=== PATIENT | female | born 1960 | race African-American/Black ===

== ENCOUNTER 2021-12-01 09:53 | Emergency (ER) | payer MEDICAID ==
[~2021-12-01] VITALS: Ht 167.6 cm; Wt 75.4 kg
[~2021-12-01 09:53] MED LIST: APIX5TAB PO; ASPI-886 PO; ASPI325T11 PO; ATOR40TA59 PO; CARV12.511 PO; CLOP75TA PO; CLOP75TA57 PO; DIPH25CA58 PO; DIPH25TA24 PO; DOXY100T PO; DULO60CA7 PO; FURO40TA4 PO; LISI5TAB15 PO; LOSA100T14 PO; METF500T16 PO; SIMV20TA PO; SULF1TAB24 PO; TRAZ-118 PO; VALS320T2 PO
[2021-12-01] MEDS ORDERED: IODIXANOL 320 MG/ML 100 ML VIAL. ONE ×2 (09:56)
[2021-12-01] MEDS ORDERED: HEPARIN for ARTERIAL LINE 1,500 ML ONE (09:56)
[2021-12-01] MEDS ORDERED: LIDOCAINE 1% Multi-Dose 20 ML VIAL. ONE (09:56)
[2021-12-01] MEDS ORDERED: MIDAZOLAM HCL/PF 2 MG/2 ML VIAL. ONE (09:59)
[2021-12-01] MEDS ORDERED: fentaNYL PF VIAL 100 MCG/2 ML VIAL ONE (09:59)
[2021-12-01] MEDS ORDERED: HEPARIN for IV BOLUS 10,000 UNIT/10 ML VIAL. ONE (09:59)
[2021-12-01] MEDS ORDERED: NITROGLYCERIN SUBLINGUAL 0.4 MG BOTTLE OF 25. SL PRN (10:00)
[2021-12-01] MEDS ORDERED: ATROPINE 1 MG/10 ML DISP.SYRINGE. ONE (10:25)
[2021-12-01] MEDS ORDERED: PHENYLEPHRINE in 0.9% NACL PF 1 MG/10 ML SYRINGE. IV ONE (10:25)
[2021-12-01] MEDS ORDERED: NITROGLYCERIN 200 MCG/2 ML SYRINGE FOR CATH/VASC LAB. ONE ×2 (10:34→10:49)
[2021-12-03 14:11] VITALS: BP_SYST 184; BP_SYST 2; BP_DIAS 3
[2021-12-03] MEDS ORDERED: PRAS10TA9 PO (14:38)
[2021-12-03] MEDS ORDERED: APIX5TAB PO (14:39)
== END 2021-12-01 10:07 | disposition admitted as inpatient to this hospital (09) ==
LOC: ER 09:53 → MERGE 09:53 → ER 10:07
DX: R07.89 Other chest pain (principal)
CPT/HCPCS: 36415; 99285-25

== ENCOUNTER → 2022-01-06 | Outpatient (CLI) | payer MEDICAID ==
[2021-12-03 14:11] VITALS: BP 110/55
[~2022-01-06] MED LIST changes: +PRAS10TA9 PO
--- NOTE | 2022-01-07 15:33 | CARD ---
MR#: [id number] Date of Study: 01/06/2022 Ordering Physician: GEORGE GARZA, Referring Physician: GEORGE GARZA Tech: Jordyn Bro [facility] APPROVED REPORT EXAM: Two-dimensional and M-mode echocardiogram with Doppler and color Doppler. Other Information Quality : GoodHR: 61bpm Rhythm : NSR INDICATION Chest Pain 2D DIMENSIONS RVDd2.8 (2.9-3.5cm)Left Atrium(2D)3.3 (1.6-4.0cm) IVSd1.1 (0.7-1.1cm)Aortic Root(2D)3.1 (2.0-3.7cm) LVDd3.8 (3.9-5.9cm)LVOT Diameter2.3 (1.8-2.4cm) PWd1.3 (0.7-1.1cm)LVDs2.5 (2.5-4.0cm) FS (%) 33.8 %SV38.9 ml LVEF(%)63.4 (>50%) Aortic Valve AoV Peak Davidson.125.5cm/sAoV VTI28.9cm AO Peak GR.6.3mmHgLVOT Peak Davidson.106.1cm/s AO Mean GR.3mmHgAVA (VMAX)3.49cm2 Mitral Valve MV E Rcvdjsar47.4cm/sMV DECEL [id number] MV A Jkjnrova98.9cm/sE/A Ratio0.9 Pulmonary Valve PV Peak Voygpqlt995.0cm/s LEFT VENTRICLE The left ventricle is normal size. There is normal left ventricular wall thickness. The left ventricu lar systolic function is normal and the ejection fraction is within normal range. EF 55% There is nor mal LV segmental wall motion. Transmitral Doppler flow pattern is Grade I-abnormal relaxation pattern . No left ventricle thrombus noted on this study. There is no ventricular septal defect visualized. T here is no left ventricular aneurysm. There is no mass noted in the left ventricle. RIGHT VENTRICLE The right ventricle is normal size. There is normal right ventricular wall thickness. The right ventr icular systolic function is normal. ATRIA The left atrium size is normal. The right atrium size is normal. The interatrial septum is intact wit h no evidence for an atrial septal defect or patent foramen ovale as noted on 2-D or Doppler imaging. AORTIC VALVE The aortic valve is normal in structure and function. Doppler and Color Flow revealed no significant aortic regurgitation. There is no significant aortic valvular stenosis. There is no aortic valvular v egetation. MITRAL VALVE The mitral valve is normal in structure and function. There is no evidence of mitral valve prolapse. There is no mitral valve stenosis. Doppler and Color-flow revealed trace mitral regurgitation. TRICUSPID VALVE The tricuspid valve is normal in structure and function. Doppler and Color Flow revealed no tricuspid valve regurgitation noted. There is no tricuspid valve prolapse or vegetation. There is no tricuspid valve stenosis. PULMONIC VALVE The pulmonary valve is normal in structure and function. There is trivial pulmonic regurgitation Ther e is no pulmonic valvular stenosis. GREAT VESSELS The aortic root is normal in size. The ascending aorta is normal in size. The IVC is normal in size a nd collapses >50% with inspiration. PERICARDIAL EFFUSION There is no pleural effusion. There is no evidence of significant pericardial effusion. Critical Notification Critical Value: No <Conclusion> The left ventricular systolic function is normal and the ejection fraction is within normal range. EF 55% There is normal LV segmental wall motion. Signed by : Antoine Mares, Electronically Approved : 01/07/2022 15:32:58
--- NOTE | 2022-01-11 10:07 | RAD ---
MR#: [id number] Date of Study: 01/06/2022 Ordering Physician: GEORGE GARZA, Referring Physician: GEORGE GARZA, Tech: Lonnie Berger MBA, RDMS, RVT, RDCS, RTR APPROVED REPORT Right Lower Extremity Venous Study for DVT Patient Location: OUT-PATIENT Indications F/U DVT Vein Imaging (Right) CFV (R): Compressible SFJ (R): Compressible FEM (R): Compressible POP (R): Compressible DFV (R): Compressible PTV (R): Spontaneous GSV (R): Spontaneous Peroneals (R): Spontaneous Doppler Evaluation (Right) CFV (R): Spontaneous POP (R):Spontaneous Findings Grayscale images of the right lower extremity saphenofemoral junction does not reveal any obvious jose dence of thrombus. The common femoral, superficial femoral, popliteal veins appear to be compressibl e with normal color Doppler flow. The below-knee veins were not well visualized but demonstrate spon taneous flow. Critical Notification Critical Value: No <Conclusion> 1. Negative for DVT in the right lower extremity Signed by : Antoine Mares, Electronically Approved : 01/11/2022 10:07:26
== END ==
LOC: ECHO 13:46
PROVIDERS: ATTEND Internal Medicine Cardiovascular Disease
DX: R22.41 Localized swelling, mass and lump, right lower limb (principal); I25.5 Ischemic cardiomyopathy
CPT/HCPCS: 93306; 93971; C8929